=== PATIENT | female | born 1955 | race Native Hawaiian/Other Pacific Islander ===

== ENCOUNTER 2017-08-05 16:34 | Inpatient (IN) | payer OTHER ==
[2017-08-05 16:39] VITALS: BMI 36.9
[2017-08-05] MEDS ORDERED: Albuterol-Ipratrop 3 mg / 0.5 (3 ml) UD ONE ×3 (16:40→17:50)
[2017-08-05] MEDS ORDERED: Albuterol-Ipratrop 3 mg / 0.5 (3 ml) UD INH STA ×2 (17:31→18:37)
[2017-08-05] MEDS ORDERED: Azithromycin 500 MG in Sodium Chloride 0.9% 250 ML IVPB STA (17:31)
[2017-08-05] MEDS ORDERED: cefTRIAXone IV 1 gm in Dextros 50 ML IVPB ONE (17:50)
[2017-08-05] MEDS ORDERED: Azithromycin 500mg/250ML NS 500 MG/250 ML BAG IVPB ONE (17:50)
[2017-08-05 18:07] LABS: BASO # 0.1 K/uL (0.0-0.2); BASO % 0.7 % (0.0-2.0); EOS # 0.4 K/uL (0.0-0.7); EOS % 3.4 % (0.0-4.0); HEMOGLOBIN 14.5 g/dL (11.0-16.0); LYMPH # 2.8 K/uL (1.0-4.3); LYMPH % 21.6 % (20.0-40.0); MEAN CELL VOLUME 82.1 fL (81.0-99.0); MEAN CORPUSCULAR HEMOGLOBIN 26.8 pg (27.0-31.0); MEAN CORPUSCULAR HGB CONC 32.7 g/dL (33.0-37.0); MEAN PLATELET VOLUME 8.3 fL (7.2-11.7); MONO # 0.7 K/uL (0.0-0.8); MONO % 5.6 % (0.0-10.0); NEUT # 8.8 K/uL (1.8-7.0); NEUT % 68.7 % (50.0-75.0); NRBC % 0.2 % (0.0-2.0); RBC 5.39 Mil/uL (3.80-5.20); RED CELL DISTRIBUTION WIDTH 14.6 % (11.5-14.5)
[2017-08-05 18:13] LABS: WHITE BLOOD COUNT 12.8 K/uL (4.8-10.8)
[2017-08-05 18:22] LABS: CALCIUM 9.1 mg/dl (8.6-10.4); GFR AFRICAN-AMERICAN > 60; GFR NON-AFRICAN AMERICAN > 60
[2017-08-05 18:33] LABS: B-TYPE NATRIURETIC PEPTIDE 111 pg/mL (0-900)
[2017-08-05 18:47] LABS: ALBUMIN 4.3 g/dL (3.5-5.0); ALT/SGPT 62 U/L (9-52); AST/SGOT 86 U/L (14-36); BLOOD UREA NITROGEN 13 mg/dL (7-17)
--- NOTE | 2017-08-05 18:50 | RAD ---
HISTORY: SOB COMPARISON: COMPARISON IS MADE TO 05/25/2015 TECHNIQUE: Chest PA and lateral FINDINGS: LUNGS: No significant interval change in the lungs noted since the previous exam. Small opacities at the right lung base are again seen. PLEURA: There is a blunting of the right costophrenic angle suggestive of small pleural effusion. CARDIOVASCULAR: Normal. OSSEOUS STRUCTURES: No significant abnormalities. VISUALIZED UPPER ABDOMEN: Normal. OTHER FINDINGS: None. IMPRESSION: No significant interval change noted since the previous study.
--- NOTE | 2017-08-05 18:52 | C.PDOC ---
History Of Present Illness Patient is a 62 y/o female who presents to the ED with complaints of SOB and cough for the last 2 days. Patient admits to sputum that is brown in nature; denies any CP, fever, or chills. Patient admits to similar symptoms in the past , and past diagnoses of PNA. No other physical complaints at this time. Time Seen by Provider: 08/05/17 17:25 Chief Complaint (Nursing): Shortness Of Breath History Per: Patient History/Exam Limitations: no limitations Onset/Duration Of Symptoms: Days (2) Current Symptoms Are (Timing): Still Present Associated Symptoms: Productive Cough (brown phlegm). denies: Fever, Chills Recent travel outside of the [place]: No Past Medical History Reviewed: Historical Data, Nursing Documentation, Vital Signs Vital Signs: Last Vital Signs Temp 97.5 F L 08/05/17 16:39 Pulse 95 H 08/05/17 16:39 Resp 20 08/05/17 16:50 BP 185/75 H 08/05/17 16:39 Pulse Ox 95 08/05/17 18:52 - Medical History PMH: HTN, Hypercholesterolemia Denies: Chronic Kidney Disease Surgical History: Cholecystectomy Family History: States: No Known Family Hx - Social History Hx Tobacco Use: No Hx Alcohol Use: No Hx Substance Use: No - Immunization History Hx Tetanus Toxoid Vaccination: No Hx Influenza Vaccination: No Hx Pneumococcal Vaccination: No Review Of Systems Constitutional: Negative for: Fever, Chills Cardiovascular: Negative for: Chest Pain Respiratory: Positive for: Cough (productive) Physical Exam - Physical Exam Appears: Well, Non-toxic, No Acute Distress Skin: Normal Color, Warm, Dry Head: Atraumatic, Normacephalic Eye(s): bilateral: Normal Inspection, PERRL, EOMI Oral Mucosa: Moist Chest: Symmetrical Cardiovascular: Rhythm Regular, No Murmur Respiratory: No Rales, No Rhonchi, Wheezing (expiratory ) Gastrointestinal/Abdominal: Soft, No Tenderness Neurological/Psych: Oriented x3, Normal Speech, Normal Cognition ED Course And Treatment - Laboratory Results Result Diagrams: 08/05/17 18:03 08/05/17 18:03 ECG: Interpreted By Me, Viewed By Me ECG Rhythm: Sinus Rhythm Interpretation Of ECG: normal intervals, normal axis, no st/t wave abnormalities Rate From EC (bpm) O2 Sat by Pulse Oximetry: 95 - Radiology CXR: Interpreted by Me, Viewed By Me CXR Interpretation: Yes: Other (right pleural effusion) Progress Note: EKG and blood work ordered. Nebulizer treatment, duoneb, zithromax, rocephin, and medrol administered. - Physician Consult Information Time Consulting Physician Contacted: 18:45 Physician Contacted: Kimberly Yun Outcome Of Conversation: Agrees to admit to medical surgical floor for PNA. Dr Gibson for consult. Disposition Discussed With .: Kimberly Yun Doctor Will See Patient In The: Hospital Counseled Patient/Family Regarding: Studies Performed, Diagnosis - Disposition Referrals: Rafiq Gibson MD [Staff Provider] - Disposition: HOSPITALIZED Disposition Time: 18:52 Condition: FAIR Forms: [facility] (Taiwanese) - Clinical Impression Clinical Impression: Pneumonia - Scribe Statement The provider has reviewed the documentation as recorded by the Scribe Hien Lara All medical record entries made by the Scribe were at my direction and personally dictated by me. I have reviewed the chart and agree that the record accurately reflects my personal performance of the history, physical exam, medical decision making, and the department course for this patient. I have also personally directed, reviewed, and agree with the discharge instructions and disposition.
--- NOTE | 2017-08-05 19:06 | CP.PCM.HP ---
History of Present Illness - History of Present Illness History of Present Illness: CC: sob sudden HPI: 62-year-old female history of diabetes, hypertension, hypercholesterolemia, gouty arthritis, psoriasis, history of Humira injection in the past came to the emergency room with increasing shortness of breath. Patient images was evaluated , given antibiotic for suspected pneumonia. pt went out yesterday because the weather was good with high of 80 but later the temp dipped to 40s, she started to have felling of cough. Last night she was restless and increasing sob unable to sleep. took some vapor treatment but very sob last night. This am she felt some what better and went to take shower again she started to have very severe sob and she rested got slightly better. she went to eat at a restaurant and got out when there was severe wind blow, she was not able to breath, choking sensation and wheezing, the family drove her to ED. she was wheezing and given respiratory treatment PEFR 100 improved to 210 Past medical history: Diabetes hypertension and hypercholesteremia gouty arthritis, psoriasis Surgical history: Colonoscopy in the past. I also had endoscopy in the past and No known drug allergies Family history: Recently brother had a lung cancer. History of diabetes Father natural causes Mother also in Family history of diabetes Social history: Neck smoker Quit 20 years ago Denies any alcohol Medications reviewed Review of system: Comparing of increasing cough, shortness of breath, mucous production. Comparing of elevated blood sugar. On examination: Vital signs stable Elevated respiratory rate noted, chest bilateral wheezing noted regular heart sound. Abdomen nontender. Denies any leg swelling Patient's labs reviewed X-ray showing evidence of possible pneumonia Assessment and recommendation: 62-year-old female with a history of hypertension, diabetes, hypercholesteremia now admitted with a possible acute pneumonia. Continue the IV antibiotic, bronchodilators, DVT prophylaxis, GI prophylaxis. steroids Incentive spirometer. Glucose monitoring. Will follow-up the patient ct chest will f/u Present on Admission - Present on Admission Any Indicators Present on Admission: No History of DVT/PE: No History of Uncontrolled Diabetes: No Urinary Catheter: No Decubitus Ulcer Present: No Past Patient History - Past Medical History & Family History Past Medical History?: Yes - Past Social History Smoking Status: Never Smoked - CARDIAC Hx Hypercholesterolemia: Yes Hx Hypertension: Yes - PULMONARY Hx Respiratory Disorders: No - NEUROLOGICAL Hx Neurological Disorder: No - HEENT Hx HEENT Problems: Yes (USES GLASSES FOR READING) - RENAL Hx Chronic Kidney Disease: No - ENDOCRINE/METABOLIC Hx Endocrine Disorders: Yes Hx Diabetes Mellitus Type 2: Yes - HEMATOLOGICAL/ONCOLOGICAL Hx Blood Disorders: No - INTEGUMENTARY Hx Dermatological Problems: No - MUSCULOSKELETAL/RHEUMATOLOGICAL Hx Musculoskeletal Disorders: Yes Hx Osteoarthritis: Yes - GASTROINTESTINAL Hx Gastrointestinal Disorders: Yes (EPIGASTRIC PAIN) - GENITOURINARY/GYNECOLOGICAL Hx Genitourinary Disorders: No - PSYCHIATRIC Hx Substance Use: No - SURGICAL HISTORY Hx Cholecystectomy: Yes - ANESTHESIA Hx Anesthesia: Yes Hx Anesthesia Reactions: No Hx Malignant Hyperthermia: No Meds Allergies/Adverse Reactions: Allergies Allergy/AdvReac Type Severity Reaction Status Date / Time No Known Allergies Allergy Verified 08/05/17 16:37 Results - Vital Signs Recent Vital Signs: Last Vital Signs Temp 97.5 F L 08/05/17 16:39 Pulse 95 H 08/05/17 16:39 Resp 20 08/05/17 16:50 BP 185/75 H 08/05/17 16:39 Pulse Ox 95 08/05/17 19:01 - Labs Result Diagrams: 08/05/17 18:03 08/05/17 18:03 Labs: Laboratory Results - last 24 hr 08/05/17 08/05/17 18:03 18:03 WBC 12.8 H D RBC 5.39 H Hgb 14.5 Hct 44.3 MCV 82.1 MCH 26.8 L MCHC 32.7 L RDW 14.6 H Plt Count 253 MPV 8.3 Neut % (Auto) 68.7 Lymph % (Auto) 21.6 [place] % (Auto) 5.6 Eos % (Auto) 3.4 Baso % (Auto) 0.7 Neut # (Auto) 8.8 H Lymph # (Auto) 2.8 [place] # (Auto) 0.7 Eos # (Auto) 0.4 Baso # (Auto) 0.1 Sodium 152 H Potassium 5.4 H Chloride 100 Carbon Dioxide 27 Anion Gap 30 H BUN 13 Creatinine 0.5 L Est GFR ( Amer) > 60 Est GFR (Non-Af Amer) > 60 Random Glucose 159 H Calcium 9.1 Total Bilirubin 1.2 AST 86 H D ALT 62 H D Alkaline Phosphatase 89 Troponin I 0.0130 NT-Pro-B Natriuret Pep 111 Total Protein 8.7 H Albumin 4.3 Globulin 4.4 H Albumin/Globulin Ratio 1.0
[2017-08-05] MEDS: (Lantus) Insulin Glargine, Recombinant SC SCH (21:12)
[2017-08-05] MEDS: (Novolin R) Insulin Human Regular 100 units/ml vial SC SCH (21:12)
[2017-08-05] MEDS: MethylPREDNISolone 40 mg Vial IVP SCH (21:13)
--- NOTE | 2017-08-05 22:59 | CP.PCM.CON ---
History of Present Illness - History of Present Illness History of Present Illness: 62 F admitted for dyspnea Patient has hx of HTN, DM and hyperlipidemia ProBNP and troponin negative Most likely dyspnea realted to pulmonary etiology Check ECHO Review Of Systems Constitutional: Negative for: Fever, Chills Cardiovascular: Negative for: Chest Pain Respiratory: Positive for: Cough (productive) Physical Exam - Physical Exam Appears: Well, Non-toxic, No Acute Distress Skin: Normal Color, Warm, Dry Head: Atraumatic, Normacephalic Eye(s): bilateral: Normal Inspection, PERRL, EOMI Oral Mucosa: Moist Chest: Symmetrical Cardiovascular: Rhythm Regular, No Murmur Respiratory: No Rales, No Rhonchi, Wheezing (expiratory ) Gastrointestinal/Abdominal: Soft, No Tenderness Neurological/Psych: Oriented x3, Normal Speech, Normal Cognition Past Patient History - Past Medical History & Family History Past Medical History?: Yes - Past Social History Smoking Status: Never Smoked - CARDIAC Hx Hypercholesterolemia: Yes Hx Hypertension: Yes - PULMONARY Hx Respiratory Disorders: No - NEUROLOGICAL Hx Neurological Disorder: No - HEENT Hx HEENT Problems: Yes (USES GLASSES FOR READING) - RENAL Hx Chronic Kidney Disease: No - ENDOCRINE/METABOLIC Hx Endocrine Disorders: Yes Hx Diabetes Mellitus Type 2: Yes - HEMATOLOGICAL/ONCOLOGICAL Hx Blood Disorders: No - INTEGUMENTARY Hx Dermatological Problems: No - MUSCULOSKELETAL/RHEUMATOLOGICAL Hx Musculoskeletal Disorders: Yes Hx Osteoarthritis: Yes - GASTROINTESTINAL Hx Gastrointestinal Disorders: Yes (EPIGASTRIC PAIN) - GENITOURINARY/GYNECOLOGICAL Hx Genitourinary Disorders: No - PSYCHIATRIC Hx Substance Use: No - SURGICAL HISTORY Hx Cholecystectomy: Yes - ANESTHESIA Hx Anesthesia: Yes Hx Anesthesia Reactions: No Hx Malignant Hyperthermia: No Meds Allergies/Adverse Reactions: Allergies Allergy/AdvReac Type Severity Reaction Status Date / Time No Known Allergies Allergy Verified 08/05/17 16:37 - Medications Medications: Current Medications Albuterol/Ipratropium (Duoneb 3 Mg/0.5 Mg (3 Ml) Ud) 3 ml INH RQ6 [facility] Glimepiride (Amaryl) 4 mg PO BID [facility] Heparin Sodium (Porcine) (Heparin) 5,000 units SC Q8 [facility] Last Admin: 08/05/17 21:13 Dose: 5,000 units Hydrochlorothiazide (Microzide) 12.5 mg PO DAILY [facility] Ceftriaxone Sodium 500 mg/ (Sodium Chloride) 50 mls @ 100 mls/hr IVPB Q24H [facility] PRN Reason: Protocol Azithromycin 500 mg/ Sodium (Chloride) 250 mls @ 166.667 mls/hr IVPB Q24H [facility] PRN Reason: Protocol Insulin Glargine (Lantus) 50 unit SC HS [facility] Last Admin: 08/05/17 21:12 Dose: 50 unit Insulin Human Isoph/Insulin Regular (Novolin 70/30 (70/30 Units/Ml) 10 Ml) 50 units SC BIDAC [facility] Insulin Human Regular (Novolin R) 0 unit SC ACHS [facility] PRN Reason: Protocol Last Admin: 08/05/17 21:12 Dose: Not Given Lisinopril (Zestril) 10 mg PO DAILY [facility] Methylprednisolone (Solu-Medrol) 20 mg IVP Q12 [facility] Last Admin: 08/05/17 21:13 Dose: 20 mg Metoprolol Succinate (Toprol Xl) 50 mg PO DAILY [facility] Rosuvastatin Calcium (Crestor) 10 mg PO HS [facility] Last Admin: 08/05/17 21:14 Dose: Not Given Fluticasone/Salmeterol (Advair Diskus 500/50) 1 puff INH RQ12 [facility] Sitagliptin Phosphate (Januvia) 50 mg PO DAILY [facility] Tiotropium [place] (Spiriva) 18 mcg INH RQ24 [facility] Tiotropium [place] (Spiriva Inhalation Handihaler Device) 1 inhaler INH ONCE ONE Stop: 08/06/17 07:01 Results - Vital Signs Recent Vital Signs: Last Vital Signs Temp 98.4 F 08/05/17 19:35 Pulse 99 H 08/05/17 19:35 Resp 18 08/05/17 19:35 BP 146/69 08/05/17 19:35 Pulse Ox 94 L 08/05/17 19:35 - Labs Result Diagrams: 08/06/17 07:18 08/06/17 07:18 Labs: Laboratory Results - last 24 hr 08/05/17 08/05/17 08/05/17 18:03 18:03 20:57 WBC 12.8 H D RBC 5.39 H Hgb 14.5 Hct 44.3 MCV 82.1 MCH 26.8 L MCHC 32.7 L RDW 14.6 H Plt Count 253 MPV 8.3 Neut % (Auto) 68.7 Lymph % (Auto) 21.6 [place] % (Auto) 5.6 Eos % (Auto) 3.4 Baso % (Auto) 0.7 Neut # (Auto) 8.8 H Lymph # (Auto) 2.8 [place] # (Auto) 0.7 Eos # (Auto) 0.4 Baso # (Auto) 0.1 Sodium 152 H Potassium 5.4 H Chloride 100 Carbon Dioxide 27 Anion Gap 30 H BUN 13 Creatinine 0.5 L Est GFR ( Amer) > 60 Est GFR (Non-Af Amer) > 60 POC Glucose (mg/dL) 188 H Random Glucose 159 H Calcium 9.1 Total Bilirubin 1.2 AST 86 H D ALT 62 H D Alkaline Phosphatase 89 Troponin I 0.0130 NT-Pro-B Natriuret Pep 111 Total Protein 8.7 H Albumin 4.3 Globulin 4.4 H Albumin/Globulin Ratio 1.0 Assessment & Plan - Assessment and Plan (Free Text) Assessment: 62 F admitted for dyspnea Patient has hx of HTN, DM and hyperlipidemia ProBNP and troponin negative Most likely dyspnea realted to pulmonary etiology Check ECHO
[2017-08-06] MEDS: Albuterol-Ipratrop 3 mg / 0.5 (3 ml) UD INH SCH ×4 (01:32→20:13)
[2017-08-06 07:26] LABS: BASO % 0.2 % (0.0-2.0); HEMOGLOBIN 14.3 g/dL (11.0-16.0); LYMPH # 0.9 K/uL (1.0-4.3); LYMPH % 10.4 % (20.0-40.0); MEAN CELL VOLUME 82.5 fL (81.0-99.0); MEAN CORPUSCULAR HEMOGLOBIN 27.4 pg (27.0-31.0); MEAN CORPUSCULAR HGB CONC 33.2 g/dL (33.0-37.0); MEAN PLATELET VOLUME 8.4 fL (7.2-11.7); MONO # 0.1 K/uL (0.0-0.8); MONO % 1.5 % (0.0-10.0); NEUT # 7.8 K/uL (1.8-7.0); NEUT % 87.9 % (50.0-75.0); RBC 5.23 Mil/uL (3.80-5.20); RED CELL DISTRIBUTION WIDTH 14.9 % (11.5-14.5); WHITE BLOOD COUNT 8.9 K/uL (4.8-10.8)
[2017-08-06] MEDS: Fluticasone-Salmeterol 500-50mcg Diskus INH SCH ×2 (07:33→20:12)
[2017-08-06 07:56] LABS: ALBUMIN 3.9 g/dL (3.5-5.0); ALT/SGPT 63 U/L (9-52); AST/SGOT 47 U/L (14-36); BLOOD UREA NITROGEN 16 mg/dL (7-17); CALCIUM 9.4 mg/dl (8.6-10.4); GFR AFRICAN-AMERICAN > 60; GFR NON-AFRICAN AMERICAN > 60
[2017-08-06] MEDS: (Novolin 70/30) NPH/Regular 70/30 Units/ml 10 ml vial SC SCH ×2 (08:18→16:56)
[2017-08-06] MEDS: (Novolin R) Insulin Human Regular 100 units/ml vial SC SCH ×4 (08:19→21:31)
[2017-08-06] MEDS: MethylPREDNISolone 40 mg Vial IVP SCH ×2 (09:39→21:33)
[2017-08-06] MEDS: Metoprolol Succinate 50 mg XL Tab PO SCH (09:41)
[2017-08-06] MEDS ORDERED: Azithromycin 500 MG in Sodium Chloride 0.9% 250 ML IVPB SCH (16:00)
[2017-08-06] MEDS: cefTRIAXone 500 MG in Sodium Chloride 0.9% 50 ML IVPB SCH (16:56)
[2017-08-06 17:33] LABS: LEGIONELLA AG URINE NEGATIVE (NEGATIVE)
[2017-08-06] MEDS: Azithromycin 500 MG in Sodium Chloride 0.9% 250 ML IVPB SCH (18:13)
[2017-08-06] MEDS ORDERED: Iohexol 300 100 ML IJ ONE (18:44)
[2017-08-06] MEDS: (Lantus) Insulin Glargine, Recombinant SC SCH (21:35)
--- NOTE | 2017-08-07 01:13 | CARD ---
APPROVED REPORT EXAM: Two-dimensional and M-mode echocardiogram with Doppler and color Doppler. Other Information Quality : GoodRhythm : INDICATION Dyspnea RISK FACTORS Hypertension Hyperlipidemia Diabetes 2D DIMENSIONS IVSd1.1 (0.7-1.1cm)LVDd4.4 (3.9-5.9cm) PWd0.9 (0.7-1.1cm)LVDs2.4 (2.5-4.0cm) FS (%) 45.1 %LVEF (%)76.6 (>50%) M-Mode DIMENSIONS RVDd1.56 (2.1-3.2cm)Left Atrium (MM)3.42 (2.5-4.0cm) IVSd1.15 (0.7-1.1cm)Aortic Root2.68 (2.2-3.7cm) LVDd4.82 (4.0-5.6cm)Aortic Cusp Exc.1.93 (1.5-2.0cm) PWd0.87 (0.7-1.1cm)FS (%) 58 % LVDs2.01 (2.0-3.8cm)LVEF (%)88 (>50%) Mitral Valve MV E Qyodptkx587.7cm/sMV A Rcfvzrbq030.4cm/sE/A ratio1.2 TDI E/Lateral E'0.0E/Medial E'0.0 LEFT VENTRICLE The left ventricle is normal size. There is normal left ventricular wall thickness. Left ventricle systolic function is normal. The Ejection Fraction is 65-70%. There is normal LV segmental wall motion. The left ventricular diastolic function is normal. There is no ventricular septal defect visualized. RIGHT VENTRICLE The right ventricle is normal size. The right ventricular systolic function is normal. ATRIA The left atrium size is normal. The right atrium size is normal. AORTIC VALVE The aortic valve is normal in structure. No aortic regurgitation is present. There is no aortic valvular stenosis. MITRAL VALVE The mitral valve is normal in structure. There is no evidence of mitral valve prolapse. There is no mitral valve regurgitation noted. TRICUSPID VALVE The tricuspid valve is normal in structure. There is no tricuspid valve regurgitation noted. PULMONIC VALVE The pulmonic valve is not well visualized. There is no pulmonic valvular regurgitation. GREAT VESSELS The aortic root is normal in size. The ascending aorta is normal in size. The IVC is normal in size and collapses >50% with inspiration. PERICARDIAL EFFUSION There is no pericardial effusion. <Conclusion> Normal study.
[2017-08-07] MEDS: Albuterol-Ipratrop 3 mg / 0.5 (3 ml) UD INH SCH ×3 (01:14→19:31)
--- NOTE | 2017-08-07 01:57 | CARD ---
APPROVED REPORT EKG Measurement Heart [id number] ND [id number] <Conclusion> Normal sinus rhythm Rightward axis Borderline ECG
[2017-08-07] MEDS: Tiotropium 18 mcg Cap For Inhalation INH SCH (07:10)
[2017-08-07] MEDS: Fluticasone-Salmeterol 500-50mcg Diskus INH SCH ×2 (07:10→19:31)
[2017-08-07 07:23] LABS: BASO % 0.4 % (0.0-2.0); HEMOGLOBIN 14.2 g/dL (11.0-16.0); LYMPH # 1.3 K/uL (1.0-4.3); LYMPH % 11.2 % (20.0-40.0); MEAN CELL VOLUME 82.9 fL (81.0-99.0); MEAN CORPUSCULAR HGB CONC 32.6 g/dL (33.0-37.0); MEAN PLATELET VOLUME 8.5 fL (7.2-11.7); MONO # 0.5 K/uL (0.0-0.8); MONO % 4.2 % (0.0-10.0); NEUT % 84.2 % (50.0-75.0); NRBC % 0.1 % (0.0-2.0); RBC 5.26 Mil/uL (3.80-5.20); WHITE BLOOD COUNT 11.8 K/uL (4.8-10.8)
[2017-08-07] MEDS: (Novolin 70/30) NPH/Regular 70/30 Units/ml 10 ml vial SC SCH ×2 (08:04→18:25)
[2017-08-07] MEDS: (Novolin R) Insulin Human Regular 100 units/ml vial SC SCH ×4 (08:07→22:46)
[2017-08-07 08:18] LABS: BLOOD UREA NITROGEN 25 mg/dL (7-17); CALCIUM 9.7 mg/dl (8.6-10.4); GFR AFRICAN-AMERICAN > 60; GFR NON-AFRICAN AMERICAN > 60
--- NOTE | 2017-08-07 08:39 | CT ---
CT chest with contrast History: Shortness of breath. Comparison: X-ray dated 05/25/2015 Technique: Axial computed tomographic images of the chest were performed with intravenous contrast. Subsequently, sagittal and coronal reformatted images were obtained. This CT exam was performed using one or more of the following dose reduction techniques: Automated exposure control, adjustment of the mA and/or kV according to patient size, and/or use of iterative reconstruction technique. Findings: Right lung: Mild atelectasis along the lateral aspect of the right middle lobe. More inferiorly in the lateral aspect of right middle lobe, there is a more lobulated reticular appearance of the pleura of which may represent some nodular consolidation and/or pleural thickening. In addition, similar lobulated reticular appearance of the pleura is seen along the lateral posterior aspect of the right lower lobe which may also represent some nodular consolidation and/or pleural thickening. Left lung: Grossly preserved. Subpleural fat deposition in the right lower pleural spaces indicated of prior trauma and/or surgery and or additional etiology. Heart appears grossly preserved. Small calcification noted within the left lobe of the thyroid. Degenerative changes in the osseous structures. Morbid obesity present. Atherosclerotic calcification within the aorta. Atherosclerotic calcification of the coronary arteries. No significant lymphadenopathy. Moderate fatty infiltration of the liver. Prominent lobulated calcifications measuring up to 2.4 centimeters associated with the patient's gallbladder fossa with adjacent clips. Gallbladder is not visualized. Right adrenal circumscribed hypodense mass measuring 2.0 x 1.4 centimeters demonstrating a Hounsfield unit attenuation of 26, indeterminate. Correlation with multiphasic CT or MR may be helpful for further characterization of this lesion if clinically indicated. Impression: Mild atelectasis along the lateral aspect of the right middle lobe. More inferiorly in the lateral aspect of right middle lobe, there is a more lobulated reticular appearance of the pleura of which may represent some nodular consolidation and/or pleural thickening. In addition, similar lobulated reticular appearance of the pleura is seen along the lateral posterior aspect of the right lower lobe which may also represent some nodular consolidation and/or pleural thickening. Subpleural fat deposition in the right lower pleural spaces indicated of prior trauma and/or surgery and or additional etiology. Small calcification noted within the left lobe of the thyroid. Moderate fatty infiltration of the liver. Prominent lobulated calcifications measuring up to 2.4 centimeters associated with the patient's gallbladder fossa with adjacent clips. Gallbladder is not visualized. Clinical correlation. Right adrenal circumscribed hypodense mass measuring 2.0 x 1.4 centimeters demonstrating a Hounsfield unit attenuation of 26, indeterminate. Correlation with multiphasic CT or MR may be helpful for further characterization of this lesion if clinically indicated. These findings were preliminarily reported at 7:26 p.m. on 08/06/[address] Harsh Emmanuel from [facility]
[2017-08-07] MEDS: MethylPREDNISolone 40 mg Vial IVP SCH ×2 (12:07→21:48)
[2017-08-07] MEDS: Metoprolol Succinate 50 mg XL Tab PO SCH (12:07)
[2017-08-07] MEDS: cefTRIAXone 500 MG in Sodium Chloride 0.9% 50 ML IVPB SCH (18:17)
[2017-08-07] MEDS: Azithromycin 500 MG in Sodium Chloride 0.9% 250 ML IVPB SCH (18:18)
[2017-08-07] MEDS: (Lantus) Insulin Glargine, Recombinant SC SCH (21:48)
[2017-08-08] MEDS: Albuterol-Ipratrop 3 mg / 0.5 (3 ml) UD INH SCH ×4 (01:47→19:32)
[2017-08-08] MEDS: Tiotropium 18 mcg Cap For Inhalation INH SCH (07:35)
[2017-08-08] MEDS: Fluticasone-Salmeterol 500-50mcg Diskus INH SCH ×2 (07:36→19:31)
[2017-08-08] MEDS: (Novolin 70/30) NPH/Regular 70/30 Units/ml 10 ml vial SC SCH ×2 (08:08→16:45)
[2017-08-08] MEDS: (Novolin R) Insulin Human Regular 100 units/ml vial SC SCH ×4 (08:08→21:43)
[2017-08-08] MEDS: MethylPREDNISolone 40 mg Vial IVP SCH ×2 (09:07→21:43)
[2017-08-08] MEDS: Metoprolol Succinate 50 mg XL Tab PO SCH (09:13)
[2017-08-08] MEDS: cefTRIAXone 500 MG in Sodium Chloride 0.9% 50 ML IVPB SCH (16:46)
[2017-08-08] MEDS: Azithromycin 500 MG in Sodium Chloride 0.9% 250 ML IVPB SCH (18:19)
[2017-08-08] MEDS: (Lantus) Insulin Glargine, Recombinant SC SCH (21:45)
--- NOTE | 2017-08-09 01:05 | CP.PCM.PN ---
Subjective - Date & Time of Evaluation Date of Evaluation: 08/06/17 Time of Evaluation: 16:00 - Subjective Subjective: Patient is still having cough, wheezing noted, cough with mucus production. No fever. On antibiotic. Bronchodilators. On corticosteroid. CAT scan of the chest depending Will follow the patient Objective - Vital Signs/Intake and Output Vital Signs (last 24 hours): Temp Pulse Resp BP Pulse Ox 98.2 F 74 22 139/64 98 08/08/17 23:58 08/08/17 23:58 08/08/17 23:58 08/08/17 23:58 08/08/17 23:58 Intake and Output: 08/08/17 08/09/17 18:59 06:59 Intake Total 400 Balance 400 - Medications Medications: Current Medications Albuterol/Ipratropium (Duoneb 3 Mg/0.5 Mg (3 Ml) Ud) 3 ml INH RQ6 [facility] Last Admin: 08/08/17 19:32 Dose: 3 ml Glimepiride (Amaryl) 4 mg PO BID [facility] Last Admin: 08/08/17 18:17 Dose: 4 mg Heparin Sodium (Porcine) (Heparin) 5,000 units SC Q8 [facility] Last Admin: 08/08/17 21:51 Dose: 5,000 units Hydrochlorothiazide (Microzide) 12.5 mg PO DAILY [facility] Last Admin: 08/08/17 09:07 Dose: 12.5 mg Insulin Glargine (Lantus) 50 unit SC HS [facility]PL[facility] Last Admin: 08/08/17 21:45 Dose: 50 unit Insulin Human Isoph/Insulin Regular (Novolin 70/30 (70/30 Units/Ml) 10 Ml) 50 units SC BIDAC REPLACED BY [facility] Last Admin: 08/08/17 16:45 Dose: 50 units Insulin Human Regular (Novolin R) 0 unit SC ACHS REPLACED BY [facility] PRN Reason: Protocol Last Admin: 08/08/17 21:43 Dose: 3 unit Lisinopril (Zestril) 10 mg PO DAILY [facility] Last Admin: 08/08/17 09:08 Dose: 10 mg Methylprednisolone (Solu-Medrol) 20 mg IVP Q12 [facility]PL[facility] Last Admin: 08/08/17 21:43 Dose: 20 mg Metoprolol Succinate (Toprol Xl) 50 mg PO DAILY [facility] Last Admin: 08/08/17 09:13 Dose: 50 mg Rosuvastatin Calcium (Crestor) 10 mg PO HS [facility] Last Admin: 08/08/17 21:50 Dose: 10 mg Fluticasone/Salmeterol (Advair Diskus 500/50) 1 puff INH RQ12 [facility] Last Admin: 08/08/17 19:31 Dose: 1 puff Sitagliptin Phosphate (Januvia) 50 mg PO DAILY [facility] Last Admin: 08/08/17 09:08 Dose: 50 mg Tiotropium [place] (Spiriva) 18 mcg INH RQ24 [facility] Last Admin: 08/08/17 07:35 Dose: 18 mcg - Labs Labs: 08/07/17 07:13 08/07/17 07:13
--- NOTE | 2017-08-09 01:06 | CP.PCM.PN ---
Subjective - Date & Time of Evaluation Date of Evaluation: 08/07/17 Time of Evaluation: 17:00 - Subjective Subjective: Patient is still having cough, wheezing noted, cough with mucus production. No fever. On antibiotic. Bronchodilators. On corticosteroid. CAT scan of the chest depending Will follow the patient CAT scan of the chest negative for pneumonia But continues to have a wheezing, will continue to monitor Objective - Vital Signs/Intake and Output Vital Signs (last 24 hours): Temp Pulse Resp BP Pulse Ox 98.2 F 74 22 139/64 98 08/08/17 23:58 08/08/17 23:58 08/08/17 23:58 08/08/17 23:58 08/08/17 23:58 Intake and Output: 08/08/17 08/09/17 18:59 06:59 Intake Total 400 Balance 400 - Medications Medications: Current Medications Albuterol/Ipratropium (Duoneb 3 Mg/0.5 Mg (3 Ml) Ud) 3 ml INH RQ6 [facility] Last Admin: 08/08/17 19:32 Dose: 3 ml Glimepiride (Amaryl) 4 mg PO BID [facility] Last Admin: 08/08/17 18:17 Dose: 4 mg Heparin Sodium (Porcine) (Heparin) 5,000 units SC Q8 [facility] Last Admin: 08/08/17 21:51 Dose: 5,000 units Hydrochlorothiazide (Microzide) 12.5 mg PO DAILY [facility] Last Admin: 08/08/17 09:07 Dose: 12.5 mg Insulin Glargine (Lantus) 50 unit SC HS [facility] Last Admin: 08/08/17 21:45 Dose: 50 unit Insulin Human Isoph/Insulin Regular (Novolin 70/30 (70/30 Units/Ml) 10 Ml) 50 units SC BIDAC [facility] Last Admin: 08/08/17 16:45 Dose: 50 units Insulin Human Regular (Novolin R) 0 unit SC ACHS [facility] PRN Reason: Protocol Last Admin: 08/08/17 21:43 Dose: 3 unit Lisinopril (Zestril) 10 mg PO DAILY [facility] Last Admin: 08/08/17 09:08 Dose: 10 mg Methylprednisolone (Solu-Medrol) 20 mg IVP Q12 [facility] Last Admin: 08/08/17 21:43 Dose: 20 mg Metoprolol Succinate (Toprol Xl) 50 mg PO DAILY [facility] Last Admin: 08/08/17 09:13 Dose: 50 mg Rosuvastatin Calcium (Crestor) 10 mg PO HS [facility] Last Admin: 08/08/17 21:50 Dose: 10 mg Fluticasone/Salmeterol (Advair Diskus 500/50) 1 puff INH RQ12 [facility] Last Admin: 08/08/17 19:31 Dose: 1 puff Sitagliptin Phosphate (Januvia) 50 mg PO DAILY [facility] Last Admin: 08/08/17 09:08 Dose: 50 mg Tiotropium [place] (Spiriva) 18 mcg INH RQ24 [facility] Last Admin: 08/08/17 07:35 Dose: 18 mcg - Labs Labs: 08/07/17 07:13 08/07/17 07:13
--- NOTE | 2017-08-09 01:09 | CP.PCM.PN ---
Subjective - Date & Time of Evaluation Date of Evaluation: 08/08/17 Time of Evaluation: 18:00 - Subjective Subjective: Patient is still having cough, wheezing noted, cough with mucus production. No fever. On antibiotic. Bronchodilators. On corticosteroid. Chest CT negative. On antibiotic and ISolu-Medrol to follow the patient Objective - Vital Signs/Intake and Output Vital Signs (last 24 hours): Temp Pulse Resp BP Pulse Ox 98.2 F 74 22 139/64 98 08/08/17 23:58 08/08/17 23:58 08/08/17 23:58 08/08/17 23:58 08/08/17 23:58 Intake and Output: 08/08/17 08/09/17 18:59 06:59 Intake Total 400 Balance 400 - Medications Medications: Current Medications Albuterol/Ipratropium (Duoneb 3 Mg/0.5 Mg (3 Ml) Ud) 3 ml INH RQ6 [facility] Last Admin: 08/08/17 19:32 Dose: 3 ml Glimepiride (Amaryl) 4 mg PO BID [facility] Last Admin: 08/08/17 18:17 Dose: 4 mg Heparin Sodium (Porcine) (Heparin) 5,000 units SC Q8 [facility] Last Admin: 08/08/17 21:51 Dose: 5,000 units Hydrochlorothiazide (Microzide) 12.5 mg PO DAILY [facility] Last Admin: 08/08/17 09:07 Dose: 12.5 mg Insulin Glargine (Lantus) 50 unit SC HS [facility] Last Admin: 08/08/17 21:45 Dose: 50 unit Insulin Human Isoph/Insulin Regular (Novolin 70/30 (70/30 Units/Ml) 10 Ml) 50 units SC BIDAC [facility] Last Admin: 08/08/17 16:45 Dose: 50 units Insulin Human Regular (Novolin R) 0 unit SC ACHS [facility] PRN Reason: Protocol Last Admin: 08/08/17 21:43 Dose: 3 unit Lisinopril (Zestril) 10 mg PO DAILY [facility] Last Admin: 08/08/17 09:08 Dose: 10 mg Methylprednisolone (Solu-Medrol) 20 mg IVP Q12 [facility] Last Admin: 08/08/17 21:43 Dose: 20 mg Metoprolol Succinate (Toprol Xl) 50 mg PO DAILY [facility] Last Admin: 08/08/17 09:13 Dose: 50 mg Rosuvastatin Calcium (Crestor) 10 mg PO HS [facility] Last Admin: 08/08/17 21:50 Dose: 10 mg Fluticasone/Salmeterol (Advair Diskus 500/50) 1 puff INH RQ12 [facility] Last Admin: 08/08/17 19:31 Dose: 1 puff Sitagliptin Phosphate (Januvia) 50 mg PO DAILY [facility] Last Admin: 08/08/17 09:08 Dose: 50 mg Tiotropium [place] (Spiriva) 18 mcg INH RQ24 [facility] Last Admin: 08/08/17 07:35 Dose: 18 mcg - Labs Labs: 08/07/17 07:13 08/07/17 07:13
[2017-08-09] MEDS: Albuterol-Ipratrop 3 mg / 0.5 (3 ml) UD INH SCH ×4 (01:32→19:59)
[2017-08-09 07:45] VITALS: RESP 20
[2017-08-09] MEDS: (Novolin R) Insulin Human Regular 100 units/ml vial SC SCH ×4 (07:45→22:06)
[2017-08-09] MEDS: (Novolin 70/30) NPH/Regular 70/30 Units/ml 10 ml vial SC SCH ×2 (07:46→17:42)
[2017-08-09] MEDS: Metoprolol Succinate 50 mg XL Tab PO SCH (09:28)
[2017-08-09] MEDS: MethylPREDNISolone 40 mg Vial IVP SCH ×2 (09:29→22:25)
[2017-08-09] MEDS: Fluticasone-Salmeterol 500-50mcg Diskus INH SCH ×2 (09:40→19:58)
[2017-08-09] MEDS: Tiotropium 18 mcg Cap For Inhalation INH SCH (09:42)
[2017-08-09] MEDS: guaiFENesin 100 mg/5 ml Syrup UD PO PRN (18:18)
[2017-08-09] MEDS: Acetylcysteine 20% Inhal Soln (4ml) INH SCH (19:59)
[2017-08-09] MEDS: (Lantus) Insulin Glargine, Recombinant SC SCH (22:05)
--- NOTE | 2017-08-09 23:10 | CP.PCM.PN ---
Subjective - Date & Time of Evaluation Date of Evaluation: 08/09/17 Time of Evaluation: 21:45 - Subjective Subjective: pt is feeling sob cough but less wheezing restarted antibiotic yesterday will continue today and in am and d/c plan in am Objective - Vital Signs/Intake and Output Vital Signs (last 24 hours): Temp Pulse Resp BP Pulse Ox 97.4 F L 70 20 134/67 98 08/09/17 16:00 08/09/17 16:00 08/09/17 16:00 08/09/17 16:00 08/09/17 16:00 - Medications Medications: Current Medications Acetylcysteine (Acetylcysteine 20%) 4 ml INH RQ6 [facility] Last Admin: 08/09/17 19:59 Dose: Not Given Albuterol/Ipratropium (Duoneb 3 Mg/0.5 Mg (3 Ml) Ud) 3 ml INH RQ6 [facility] Last Admin: 08/09/17 19:59 Dose: 3 ml Azithromycin (Zithromax) 250 mg PO DAILY [facility] PRN Reason: Protocol Last Admin: 08/09/17 22:04 Dose: 250 mg Glimepiride (Amaryl) 4 mg PO BID [facility] Last Admin: 08/09/17 17:42 Dose: 4 mg Guaifenesin (Robitussin) 100 mg PO Q4H PRN PRN Reason: Cough Last Admin: 08/09/17 18:18 Dose: 100 mg Heparin Sodium (Porcine) (Heparin) 5,000 units SC Q8 [facility] Last Admin: 08/09/17 22:05 Dose: 5,000 units Hydrochlorothiazide (Microzide) 12.5 mg PO DAILY [facility] Last Admin: 08/09/17 09:28 Dose: 12.5 mg Ceftriaxone Sodium 1 gm/ (Sodium Chloride) 100 mls @ 100 mls/hr IVPB DAILY [facility] PRN Reason: Protocol Last Admin: 08/09/17 20:22 Dose: 100 mls/hr Insulin Glargine (Lantus) 50 unit SC HS [facility] Last Admin: 08/09/17 22:05 Dose: 50 unit Insulin Human Isoph/Insulin Regular (Novolin 70/30 (70/30 Units/Ml) 10 Ml) 50 units SC BIDAC [facility] Last Admin: 08/09/17 17:42 Dose: 50 units Insulin Human Regular (Novolin R) 0 unit SC ACHS [facility] PRN Reason: Protocol Last Admin: 08/09/17 22:06 Dose: Not Given Losartan Potassium (Cozaar) 50 mg PO DAILY [facility] Methylprednisolone (Solu-Medrol) 20 mg IVP Q12 [facility] Last Admin: 08/09/17 22:25 Dose: 20 mg Metoprolol Succinate (Toprol Xl) 50 mg PO DAILY [facility] Last Admin: 08/09/17 09:28 Dose: 50 mg Rosuvastatin Calcium (Crestor) 10 mg PO HS [facility] Last Admin: 08/09/17 22:25 Dose: 10 mg Fluticasone/Salmeterol (Advair Diskus 500/50) 1 puff INH RQ12 [facility] Last Admin: 08/09/17 19:58 Dose: 1 puff Sitagliptin Phosphate (Januvia) 50 mg PO DAILY [facility] Last Admin: 08/09/17 09:28 Dose: 50 mg Tiotropium [place] (Spiriva) 18 mcg INH RQ24 [facility] Last Admin: 08/09/17 09:42 Dose: 18 mcg - Labs Labs: 08/07/17 07:13 08/07/17 07:13
[2017-08-10] MEDS: guaiFENesin 100 mg/5 ml Syrup UD PO PRN ×3 (00:10→09:36)
[2017-08-10] MEDS: Acetylcysteine 20% Inhal Soln (4ml) INH SCH ×4 (02:07→20:51)
[2017-08-10] MEDS: Albuterol-Ipratrop 3 mg / 0.5 (3 ml) UD INH SCH ×4 (02:08→20:51)
[2017-08-10 08:53] LABS: BASO # 0.1 K/uL (0.0-0.2); BASO % 0.8 % (0.0-2.0); EOS % 0.1 % (0.0-4.0); HEMOGLOBIN 14.9 g/dL (11.0-16.0); LYMPH # 2.4 K/uL (1.0-4.3); LYMPH % 18.4 % (20.0-40.0); MEAN CORPUSCULAR HGB CONC 32.6 g/dL (33.0-37.0); MEAN PLATELET VOLUME 8.6 fL (7.2-11.7); MONO # 0.5 K/uL (0.0-0.8); NEUT # 10.2 K/uL (1.8-7.0); NEUT % 76.7 % (50.0-75.0); RBC 5.5 Mil/uL (3.80-5.20); RED CELL DISTRIBUTION WIDTH 15.4 % (11.5-14.5); WHITE BLOOD COUNT 13.3 K/uL (4.8-10.8)
[2017-08-10] MEDS: (Novolin 70/30) NPH/Regular 70/30 Units/ml 10 ml vial SC SCH ×2 (08:54→17:04)
[2017-08-10] MEDS: (Novolin R) Insulin Human Regular 100 units/ml vial SC SCH ×4 (08:54→21:31)
[2017-08-10 09:07] LABS: ALB/GLOB RATIO 1.1 (1.0-2.1); ALBUMIN 4.1 g/dL (3.5-5.0); ALT/SGPT 67 U/L (9-52); AST/SGOT 48 U/L (14-36); BLOOD UREA NITROGEN 18 mg/dL (7-17); CALCIUM 9.4 mg/dl (8.6-10.4); GFR AFRICAN-AMERICAN > 60; GFR NON-AFRICAN AMERICAN > 60
[2017-08-10] MEDS: Metoprolol Succinate 50 mg XL Tab PO SCH (09:37)
[2017-08-10] MEDS: MethylPREDNISolone 40 mg Vial IVP SCH ×2 (09:38→21:30)
[2017-08-10] MEDS: Fluticasone-Salmeterol 500-50mcg Diskus INH SCH ×2 (10:28→20:51)
[2017-08-10] MEDS: Tiotropium 18 mcg Cap For Inhalation INH SCH (10:29)
[2017-08-10] MEDS: (Lantus) Insulin Glargine, Recombinant SC SCH (21:45)
[2017-08-11] MEDS: Acetylcysteine 20% Inhal Soln (4ml) INH SCH ×4 (02:08→19:45)
[2017-08-11] MEDS: Albuterol-Ipratrop 3 mg / 0.5 (3 ml) UD INH SCH ×4 (02:11→19:44)
[2017-08-11] MEDS: Fluticasone-Salmeterol 500-50mcg Diskus INH SCH ×2 (07:24→19:44)
[2017-08-11] MEDS: Tiotropium 18 mcg Cap For Inhalation INH SCH (07:24)
[2017-08-11] MEDS: (Novolin 70/30) NPH/Regular 70/30 Units/ml 10 ml vial SC SCH ×2 (08:33→17:28)
[2017-08-11] MEDS: (Novolin R) Insulin Human Regular 100 units/ml vial SC SCH ×4 (08:35→21:56)
[2017-08-11] MEDS: Metoprolol Succinate 50 mg XL Tab PO SCH (09:42)
[2017-08-11] MEDS: MethylPREDNISolone 40 mg Vial IVP SCH ×2 (09:43→21:48)
[2017-08-11] MEDS: (Lantus) Insulin Glargine, Recombinant SC SCH (21:49)
[2017-08-12] MEDS: Albuterol-Ipratrop 3 mg / 0.5 (3 ml) UD INH SCH ×4 (01:39→20:36)
[2017-08-12] MEDS: Acetylcysteine 20% Inhal Soln (4ml) INH SCH ×4 (01:40→20:36)
[2017-08-12] MEDS: (Novolin R) Insulin Human Regular 100 units/ml vial SC SCH ×4 (07:42→21:56)
[2017-08-12] MEDS: (Novolin 70/30) NPH/Regular 70/30 Units/ml 10 ml vial SC SCH ×2 (07:42→17:27)
[2017-08-12] MEDS: Fluticasone-Salmeterol 500-50mcg Diskus INH SCH ×2 (08:19→20:36)
[2017-08-12] MEDS: Tiotropium 18 mcg Cap For Inhalation INH SCH (08:21)
[2017-08-12] MEDS: Metoprolol Succinate 50 mg XL Tab PO SCH (09:37)
[2017-08-12] MEDS: MethylPREDNISolone 40 mg Vial IVP SCH ×2 (09:37→21:51)
[2017-08-12] MEDS: (Lantus) Insulin Glargine, Recombinant SC SCH (21:55)
[2017-08-13] MEDS: Acetylcysteine 20% Inhal Soln (4ml) INH SCH ×3 (01:33→13:45)
[2017-08-13] MEDS: Albuterol-Ipratrop 3 mg / 0.5 (3 ml) UD INH SCH ×4 (01:33→19:21)
[2017-08-13] MEDS: (Novolin 70/30) NPH/Regular 70/30 Units/ml 10 ml vial SC SCH ×2 (08:09→17:57)
[2017-08-13] MEDS: (Novolin R) Insulin Human Regular 100 units/ml vial SC SCH ×4 (08:11→21:47)
[2017-08-13] MEDS: Tiotropium 18 mcg Cap For Inhalation INH SCH (09:31)
[2017-08-13] MEDS: Fluticasone-Salmeterol 500-50mcg Diskus INH SCH (09:31)
[2017-08-13] MEDS: MethylPREDNISolone 40 mg Vial IVP SCH ×2 (09:51→21:42)
[2017-08-13] MEDS: Metoprolol Succinate 50 mg XL Tab PO SCH (09:53)
--- NOTE | 2017-08-13 19:21 | CP.PCM.PN ---
Subjective - Date & Time of Evaluation Date of Evaluation: 08/13/17 Objective - Vital Signs/Intake and Output Vital Signs (last 24 hours): Temp Pulse Resp BP Pulse Ox 98.2 F 72 20 138/66 97 08/13/17 16:00 08/13/17 16:00 08/13/17 16:00 08/13/17 16:00 08/13/17 16:00 Intake and Output: 08/13/17 08/14/17 18:59 06:59 Intake Total 500 Balance 500 - Medications Medications: Current Medications Acetylcysteine (Acetylcysteine 20%) 4 ml INH RQ6 [facility] Last Admin: 08/13/17 13:45 Dose: Not Given Albuterol/Ipratropium (Duoneb 3 Mg/0.5 Mg (3 Ml) Ud) 3 ml INH RQ6 [facility] Last Admin: 08/13/17 13:46 Dose: 3 ml Glimepiride (Amaryl) 4 mg PO BID [facility] Last Admin: 08/13/17 17:56 Dose: 4 mg Guaifenesin (Robitussin) 100 mg PO Q4H PRN PRN Reason: Cough Last Admin: 08/10/17 09:36 Dose: 100 mg Hydrochlorothiazide (Microzide) 12.5 mg PO DAILY [facility] Last Admin: 08/13/17 09:51 Dose: 12.5 mg Insulin Glargine (Lantus) 50 unit SC HS [facility] Last Admin: 08/12/17 21:55 Dose: 50 unit Insulin Human Isoph/Insulin Regular (Novolin 70/30 (70/30 Units/Ml) 10 Ml) 50 units SC BIDAC [facility] Last Admin: 08/13/17 17:57 Dose: 50 units Insulin Human Regular (Novolin R) 0 unit SC ACHS [facility] PRN Reason: Protocol Last Admin: 08/13/17 17:57 Dose: 4 unit Losartan Potassium (Cozaar) 50 mg PO DAILY [facility] Last Admin: 08/13/17 09:51 Dose: 50 mg Methylprednisolone (Solu-Medrol) 20 mg IVP Q12 [facility] Last Admin: 08/13/17 09:51 Dose: 20 mg Metoprolol Succinate (Toprol Xl) 50 mg PO DAILY [facility] Last Admin: 08/13/17 09:53 Dose: 50 mg Rosuvastatin Calcium (Crestor) 10 mg PO HS [facility] Last Admin: 08/12/17 21:50 Dose: 10 mg Fluticasone/Salmeterol (Advair Diskus 500/50) 1 puff INH RQ12 [facility] Last Admin: 08/13/17 09:31 Dose: Not Given Sitagliptin Phosphate (Januvia) 50 mg PO DAILY [facility] Last Admin: 08/13/17 09:51 Dose: 50 mg Tiotropium [place] (Spiriva) 18 mcg INH RQ24 [facility] Last Admin: 08/13/17 09:31 Dose: Not Given - Labs Labs: 08/10/17 08:45 08/10/17 08:45
[2017-08-13] MEDS: (Lantus) Insulin Glargine, Recombinant SC SCH (21:46)
[2017-08-14] MEDS: Albuterol-Ipratrop 3 mg / 0.5 (3 ml) UD INH SCH ×3 (01:50→13:33)
[2017-08-14] MEDS: Acetylcysteine 20% Inhal Soln (4ml) INH SCH ×3 (01:51→13:33)
[2017-08-14 07:12] LABS: BASO # 0.1 K/uL (0.0-0.2); BASO % 0.5 % (0.0-2.0); EOS % 0.1 % (0.0-4.0); HEMOGLOBIN 14.2 g/dL (11.0-16.0); LYMPH # 1.5 K/uL (1.0-4.3); LYMPH % 10.9 % (20.0-40.0); MEAN CELL VOLUME 82.8 fL (81.0-99.0); MEAN CORPUSCULAR HEMOGLOBIN 26.9 pg (27.0-31.0); MEAN CORPUSCULAR HGB CONC 32.5 g/dL (33.0-37.0); MEAN PLATELET VOLUME 8.5 fL (7.2-11.7); MONO # 0.6 K/uL (0.0-0.8); NEUT # 11.8 K/uL (1.8-7.0); NEUT % 84.5 % (50.0-75.0); RBC 5.28 Mil/uL (3.80-5.20); RED CELL DISTRIBUTION WIDTH 15.3 % (11.5-14.5); WHITE BLOOD COUNT 13.9 K/uL (4.8-10.8)
[2017-08-14 07:34] LABS: ALB/GLOB RATIO 1.2 (1.0-2.1); ALBUMIN 3.6 g/dL (3.5-5.0); ALT/SGPT 93 U/L (9-52); AST/SGOT 33 U/L (14-36); BLOOD UREA NITROGEN 21 mg/dL (7-17); CALCIUM 7.8 mg/dl (8.6-10.4)
[2017-08-14 07:35] LABS: GFR AFRICAN-AMERICAN > 60; GFR NON-AFRICAN AMERICAN > 60
[2017-08-14 07:50] VITALS: BP 142/64; PULSE 74; TEMP 97.6; O2SAT 98
[2017-08-14] MEDS: (Novolin R) Insulin Human Regular 100 units/ml vial SC SCH ×2 (08:11→12:07)
[2017-08-14] MEDS: (Novolin 70/30) NPH/Regular 70/30 Units/ml 10 ml vial SC SCH (08:11)
[2017-08-14] MEDS: Metoprolol Succinate 50 mg XL Tab PO SCH (09:29)
[2017-08-14] MEDS: MethylPREDNISolone 40 mg Vial IVP SCH (09:29)
[2017-08-14] MEDS: Tiotropium 18 mcg Cap For Inhalation INH SCH (09:42)
[2017-08-14] MEDS: Fluticasone-Salmeterol 500-50mcg Diskus INH SCH (09:42)
--- NOTE | 2017-08-14 16:04 | CP.PCM.PN ---
Subjective - Date & Time of Evaluation Date of Evaluation: 08/14/17 Time of Evaluation: 11:00 - Subjective Subjective: Alert and orientedx3, no distress, NAD. Objective - Vital Signs/Intake and Output Vital Signs (last 24 hours): Temp Pulse Resp BP Pulse Ox 97.6 F 74 20 142/64 98 08/14/17 07:48 08/14/17 07:48 08/14/17 07:48 08/14/17 07:48 08/14/17 07:48 Intake and Output: 08/14/17 08/14/17 06:59 18:59 Intake Total 550 500 Balance 550 500 - Labs Labs: 08/14/17 07:04 08/14/17 07:04 Assessment and Plan - Assessment and Plan (Free Text) Assessment: 62 year old female admitted with pneumonia, seen and examined. Alert and orientedx3, denies sob or chest pains, no wheezing. Discussed with DR Yun , plan to discharge home today. Advised to follow up in the office in 1 week. Will continue with advair and proventil puffs as advised.
== END 2017-08-14 15:39 | disposition home or self-care (01) | DRG 195 ==
LOC: C.ER 16:34 → C.9E 18:51 → C.3T 19:04
PROVIDERS: ADMIT Internal Medicine; ATTEND Internal Medicine
DX: J18.9 Pneumonia, unspecified organism (principal); I10 Essential (primary) hypertension; F17.200 Nicotine dependence, unspecified, uncomplicated; E78.5 Hyperlipidemia, unspecified; E11.9 Type 2 diabetes mellitus without complications; E66.01 Morbid (severe) obesity due to excess calories; Z68.36 Body mass index [BMI] 36.0-36.9, adult; Z79.4 Long term (current) use of insulin

== ENCOUNTER 2017-11-21 10:42 | Day surgery (SDC) | payer OTHER ==
[2017-11-13 09:21] VITALS: BMI 35.9
[2017-11-21] MEDS ORDERED: Midazolam 2 MG/2 ML VIAL ONE (14:00)
[2017-11-21] MEDS ORDERED: Propofol 10 mg/ml Inj (20 ML) ONE (14:00)
[2017-11-21] MEDS ORDERED: Silver Nitrate Topical - Stick ONE (14:30)
[2017-11-21] MEDS ORDERED: HYDROmorphone 0.5 mg/0.5 ml ISec IVP PRN (15:01)
--- NOTE | 2017-11-21 15:17 | PCM.SURG1 ---
Surgeon's Initial Post Op Note - Surgeon's Notes Surgeon: Payal Wrecking Mechanic: None Type of Anesthesia: General LMA Pre-Operative Diagnosis: endometrial thickness and polyp Operative Findings: long endometrial polyp, slight proliferative lining circumferentially, inflammation of vulva Post-Operative Diagnosis: same Operation Performed: hysteroscopy D&C myosure, vulvar biopsy Specimen/Specimens Removed: polyp and directed endometrial curettage Estimated Blood Loss: EBL {In ML}: 50 Drains Used: No Drains Post-Op Condition: Good Date of Surgery/Procedure: 11/21/17 Time of Surgery/Procedure: 15:17
[2017-11-21] MEDS ORDERED: Lactated Ringer's 1,000 ML IV ONE (16:30)
[2017-11-21 18:41] VITALS: BP 138/52; PULSE 87; RESP 20; TEMP 97.5; O2SAT 96
--- NOTE | 2017-11-23 08:20 | OP ---
Copied To: Roselia Moe MD Attending MD: Roselia Moe MD PROCEDURE DATE: 11/21/2017 PREOPERATIVE DIAGNOSES: Endometrial thickness and endometrial polyp. POSTOPERATIVE DIAGNOSES: Endometrial thickness and endometrial polyp. SURGEON: Roselia Moe MD. GLASS SMOOTHER: None. TYPE OF ANESTHESIA: General LMA. OPERATION PERFORMED: Hysteroscopy, D and C, MyoSure, vulvar biopsy. OPERATIVE FINDINGS: Long endometrial polyp, circumferentially. There is no evidence of perforation, inflammation of vulva. OPERATIVE PROCEDURE: The patient was consented and taken to the OR, where time-out was performed. She was placed in the dorsal lithotomy position. She was prepped and draped in the usual sterile fashion. The cervix was grasped with a single-tooth tenaculum. It was sterilely dilated to allow passage of the operative hysteroscope. Normal saline was used as a distention medium. The findings above was found. The MyoSure device was used to resect the pathology and perform a visually-directed dilatation and curettage. All specimens were sent to pathology. All counts were correct at the end of the case. The attention was turned to the vulvar potion of the procedure. A vulvar shave biopsy was performed at 3 and 9 o' clock. At this time, the patient was noted to have diffuse mucosal bleeding and stitches were placed to obtain hemostasis at these sites. All needle and lap counts were correct. The patient was taken to the recovery in stable condition. ESTIMATED BLOOD LOSS: 50 mL. DRAINS: None. SPECIMEN: Endometrial polyp directed endometrial curetting and vulvar biopsy. CONDITION: Stable for PACU. Roselia Moe MD
== END 2017-11-21 18:42 | disposition home or self-care (01) ==
LOC: C.SDS 10:42
PROVIDERS: ATTEND Obstetrics & Gynecology
DX: N84.0 Polyp of corpus uteri (principal); N85.00 Endometrial hyperplasia, unspecified
CPT/HCPCS: 58558; 82948; 88305; J1100; J2250; J2405; J2704; J3010; J7120

== ENCOUNTER 2018-06-08 08:06 | Outpatient (CLI) | payer OTHER | END 2018-06-08 08:07 | disposition home or self-care (01) | LOC: C.LAB 08:06 | DX: E11.65 Type 2 diabetes mellitus with hyperglycemia (principal); I10 Essential (primary) hypertension; E04.2 Nontoxic multinodular goiter; E78.2 Mixed hyperlipidemia; E01.8 Other iodine-deficiency related thyroid disorders and allied conditions; E06.3 Autoimmune thyroiditis; E88.81 Metabolic syndrome and other insulin resistance; D51.9 Vitamin B12 deficiency anemia, unspecified; E55.9 Vitamin D deficiency, unspecified; D64.9 Anemia, unspecified; N30.00 Acute cystitis without hematuria; N30.01 Acute cystitis with hematuria ==

== ENCOUNTER 2018-09-07 09:40 | Outpatient (CLI) | payer OTHER | END 2018-09-07 09:41 | disposition home or self-care (01) | LOC: C.LAB 09:40 | DX: E11.65 Type 2 diabetes mellitus with hyperglycemia (principal); I10 Essential (primary) hypertension; E04.2 Nontoxic multinodular goiter; E78.2 Mixed hyperlipidemia; E01.8 Other iodine-deficiency related thyroid disorders and allied conditions; E06.3 Autoimmune thyroiditis; E88.81 Metabolic syndrome and other insulin resistance; D51.9 Vitamin B12 deficiency anemia, unspecified; E55.9 Vitamin D deficiency, unspecified; E64.3 Sequelae of rickets; D64.9 Anemia, unspecified; N30.00 Acute cystitis without hematuria; R30.9 Painful micturition, unspecified; N30.01 Acute cystitis with hematuria ==